=== PATIENT | male | born 1970 | race African-American/Black ===

== ENCOUNTER 2019-03-23 13:05 | Emergency (ER) | payer OTHER ==
[~2019-03-23] VITALS: Ht 175.3 cm; Wt 95.3 kg
[~2019-03-23 13:05] MED LIST: HYDR-2145 PO
[2019-03-23 13:20] VITALS: BP 128/82
[2019-03-23] MEDS ORDERED: HYDROcodone/APAP 5/325MG 1 TAB TABLET PO ONE (14:00)
--- NOTE | 2019-03-23 14:53 | RAD ---
3 view left elbow HISTORY: Pain and swelling after a fall a few days ago FINDINGS: No evidence of acute fracture. Joint spaces and alignment are intact. No radiographic evidence of joint effusion. Partially visualized surgical fixation plate at the mid radial shaft. IMPRESSION: No acute fracture or dislocation. Electronically signed by: Jd Prado MD (03/23/2019 2:50 PM) [facility]
--- NOTE | 2019-03-23 15:17 | PHYS DOC ---
Past Medical History Past Medical History: Hypertension Past Surgical History: Other Additional Past Surgical Histo: L. ARM Alcohol Use: Occasionally Drug Use: Cocaine Adult General Chief Complaint Chief Complaint: ELBOW PROBLEM HPI HPI Patient is a 48 year old [male] who presents with [left elbow pain for the past 5 days. Patient reports he had hit it at work, and has continued pain in that elbow since that time. States he had tries ibuprofen once or twice, but didn't seem to help a little bit but he has not continued to take. States this feels swollen. States he frequently gets his elbow while he is at work. States little discomfort when he moves his elbow, not worse than usual.] Review of Systems Review of Systems Constitutional: Denies fever or chills [] Eyes: Denies change in visual acuity, redness, or eye pain [] HENT: Denies nasal congestion or sore throat [] Respiratory: Denies cough or shortness of breath [] Cardiovascular: No additional information not addressed in HPI [] GI: Denies abdominal pain, nausea, vomiting, bloody stools or diarrhea [] : Denies dysuria or hematuria [] Musculoskeletal: Denies back pain or joint pain, complains of pain to left elbow [] Integument: Denies rash or skin lesions [] Neurologic: Denies headache, focal weakness or sensory changes [] Endocrine: Denies polyuria or polydipsia [] All other systems were reviewed and found to be within normal limits, except as documented in this note. Current Medications Current Medications Current Medications Medications (Trade) Dose Ordered Sig/Rosanna Start Time Stop Time Status Last Admin Dose Admin Acetaminophen/ Hydrocodone Bitart (Lortab 5/325) 1 tab 1X ONCE 03/23/19 14:00 03/23/19 14:01 DC 03/23/19 14:03 1 TAB Allergies Allergies Allergies Coded Allergies Type Severity Reaction Last Updated Verified No Known Drug Allergies 06/09/16 No Physical Exam Physical Exam Constitutional: Well developed, well nourished, no acute distress, non-toxic appearance. [] HENT: Normocephalic, atraumatic, bilateral external ears normal, oropharynx moist, no oral exudates, nose normal. [] Eyes: PERRLA, EOMI, conjunctiva normal, no discharge. [] Neck: Normal range of motion, no tenderness, supple, no stridor. [] Cardiovascular:Heart rate regular rhythm, no murmur [] Lungs & Thorax: Bilateral breath sounds clear to auscultation [] Abdomen: Bowel sounds normal, soft, no tenderness, no masses, no pulsatile m asses. [] Skin: Warm, dry, no erythema, no rash. [] Back: No tenderness, no CVA tenderness. [] Extremities: No tenderness, no cyanosis, no clubbing, ROM intact, minimal amount of edema noted to elbow. [] Neurologic: Alert and oriented X 3, normal motor function, normal sensory function, no focal deficits noted. [] Psychologic: Affect normal, judgement normal, mood normal. [] Current Patient Data Vital Signs Vital Signs Date Time Temp Pulse Resp B/P (MAP) Pulse Ox O2 Delivery O2 Flow Rate FiO2 03/23/19 14:03 14 97 Room Air 03/23/19 13:20 98.1 111 128/82 (97) 98.1 EKG EKG [] Radiology/Procedures Radiology/Procedures []FINDINGS: No evidence of acute fracture. Joint spaces and alignment are intact. No radiographic evidence of joint effusion. Partially visualized surgical fixation plate at the mid radial shaft. IMPRESSION: No acute fracture or dislocation. Electronically signed by: Jd Prado MD (03/23/2019 2:50 PM) [facility] Course & Med Decision Making Course & Med Decision Making Pertinent Labs and Imaging studies reviewed. (See chart for details) [] Dragon Disclaimer Dragon Disclaimer This electronic medical record was generated, in whole or in part, using a voice recognition dictation system. Departure Departure Impression: Primary Impression: Elbow contusion Disposition: 01 HOME, SELF-CARE Condition: GOOD Referrals: NO PCP (PCP) Patient Instructions: Elbow Contusion, [id number] Additional Instructions: Continue to take tylenol/ ibuprofen for pain wear the shanna wrap for the next couple days, you may have to rewrap it a few t imes, this will help support it Continue to put ice on your elbow Follow up with your primary care provider Problem Qualifiers Primary Impression: Elbow contusion Encounter type: initial encounter Laterality: left Qualified Codes: S50.02XA - Contusion of left elbow, initial encounter [facility] STEVENS APRN Mar 23, 2019 15:16
== END 2019-03-23 15:21 | disposition home or self-care (01) ==
LOC: ER 13:05
DX: S50.02XA Contusion of left elbow, initial encounter (principal); I10 Essential (primary) hypertension; W18.39XA Other fall on same level, initial encounter; Y93.89 Activity, other specified; Y92.89 Other specified places as the place of occurrence of the external cause; Y99.0 Civilian activity done for income or pay
CPT/HCPCS: 73080; 99284